=== PATIENT | male | born 1985 | race American Indian/Alaskan Native ===

== ENCOUNTER 2016-09-10 14:50 | Emergency (ER) | payer SELFPAY ==
[2016-09-10 15:35] VITALS: BP 118/66
[2016-09-10] MEDS ORDERED: MOTRIN PO ONE (15:48)
--- NOTE | 2016-09-10 15:52 | Emergency Department Report ---
Minor Respiratory - HPI Chief Complaint: Upper Respiratory Infection Stated Complaint: FLU SYMPTOMS Time Seen by Provider: 09/10/16 15:42 Duration: 2 Days Pain Location: Throat Severity: mild Minor Respiratory: Yes Rhinorrhea, Yes Sore Throat, Yes Able to Tolerate Fluids , Yes Cough, Yes Sick Contacts, Yes Fever, No Ear Pain, No Hemoptysis, No Chest Pain, No Shortness of Breath Other History: Pt reports minor cough, congestion, sore throat with fever, nausea, mylagias x 2 days. ED Review of Systems ROS: Stated complaint: FLU SYMPTOMS Other details as noted in HPI Comment: All other systems reviewed and negative Constitutional: chills, fever Eyes: denies: eye pain, eye discharge, vision change ENT: throat pain, congestion. denies: ear pain Respiratory: cough. denies: shortness of breath, wheezing Cardiovascular: denies: chest pain, palpitations Endocrine: no symptoms reported Gastrointestinal: nausea. denies: abdominal pain, vomiting, diarrhea Genitourinary: denies: urgency, dysuria Musculoskeletal: denies: back pain, joint swelling, arthralgia Skin: denies: rash, lesions Neurological: headache. denies: weakness, paresthesias Psychiatric: denies: anxiety, depression Hematological/Lymphatic: denies: easy bleeding, easy bruising ED Past Medical Hx - Past Medical History Previous Medical History?: No - Surgical History Past Surgical History?: No - Social History Smoking Status: Current Every Day Smoker Substance Use Type: Alcohol, Non Opiate Pain - Medications Home Medications: Home Medications Medication Instructions Recorded Confirmed Last Taken Type Ibuprofen [Motrin 800 MG tab] 800 mg PO TID #15 tablet 09/10/16 Unknown Rx Ondansetron [Zofran TAB] 4 mg PO Q8HR PRN #10 tablet 09/10/16 Unknown Rx Oseltamivir [Tamiflu] 75 mg PO BID #10 cap 09/10/16 Unknown Rx Minor Respiratory Exam - Exam General: Vital signs noted. No distress. Alert and acting appropriately. HEENT: Yes Pharyngeal Erythema, Yes Moist Mucous Membranes, No Pharyngeal Exudates, No Rhinorrhea, No Conjuctival Injection, No Frontal Tenderness, No Maxillary Tenderness Ear: Neither TM Bulge, Neither TM Erythema, Neither EAC Pain, Neither EAC Discharge Neck: Yes Supple, No Adenopathy Lungs: Yes Good Air Exchange, No Wheezes, No Ronchi, No Stridor, No Cough, No Labored Respirations, No Retractions, No Use of Accessory Muscles, No Other Abnormal Lung Sounds Heart: Yes Regular, No Murmur Abdomen: Yes Normal Bowel Sounds, No Tenderness, No Peritoneal Signs Skin: No Rash, No Edema Neurologic: Alert and oriented, no deficits. No signs of meningitis Musculoskeletal: Unremarkable. ED Course Vital Signs 09/10/16 15:32 Temperature 100.5 F H Pulse Rate 80 Respiratory 18 Rate Blood Pressure 118/66 O2 Sat by Pulse 98 Oximetry - Reevaluation(s) Reevaluation #1: 09/10/16 15:50 NAD, stable for d/c. ED Medical Decision Making - Medical Decision Making Pt with sx of influenza. Will treat and have him follow up. - Differential Diagnosis flu, pna Critical care attestation.: If time is entered above; I have spent that time in minutes in the direct care of this critically ill patient, excluding procedure time. ED Disposition Clinical Impression: Influenza Disposition: DISCHARGED TO HOME OR SELFCARE Is pt being admited?: No Condition: Good Instructions: Influenza (ED) Prescriptions: Ibuprofen [Motrin 800 MG tab] 800 mg PO TID #15 tablet Ondansetron [Zofran TAB] 4 mg PO Q8HR PRN #10 tablet PRN Reason: Nausea And Vomiting Oseltamivir [Tamiflu] 75 mg PO BID #10 cap Referrals: JEFF FAIRBANKS MD [Staff Physician] - 3-5 Days Forms: Work/School Release Form(ED) Time of Disposition: 15:51
== END 2016-09-10 16:00 | disposition home or self-care (01) ==
LOC: ED 14:50
DX: J11.1 Influenza due to unidentified influenza virus with other respiratory manifestations (principal); F17.200 Nicotine dependence, unspecified, uncomplicated
CPT/HCPCS: 99282

== ENCOUNTER 2019-01-02 11:40 | Emergency (ER) | payer SELFPAY ==
--- NOTE | 2019-01-02 11:57 | Emergency Department Report ---
Blank Doc - Documentation Documentation: This is a 33-year-old male that presents with decreased hearing and filling fu llness to right ear. Exam: Earwax buildup. Unable to visualize TMs. This initial assessment/diagnostic orders/clinical plan/treatment(s) is/are subject to change based on patient's health status, clinical progression and re- assessment by fellow clinical providers in the ED. Further treatment and workup at subsequent clinical providers discretion. Patient/guardians urged not to elope from the ED as their condition may be serious if not clinically assessed and managed. Initial orders include: 1- Patient sent to [facility] for further evaluation and treatment
[2019-01-02 11:58] VITALS: BP 131/46
--- NOTE | 2019-01-02 14:00 | Emergency Department Report ---
Chief Complaint: Earache Stated Complaint: R EAR INJURY Time Seen by Provider: 01/02/19 11:53 - HPI History of Present Illness: 33-year-old -Greek male presents to the emergency room complaint of right ear being clogged. Patient denies any trauma to the ear no fever no chills no nausea no vomiting. Patient does report he was recently went swimming. This started one day ago. Patient denies any ear pain. - ROS Review of Systems: No fever no chills, no nausea no vomiting, no ear drainage, no ear pain, no dizziness or imbalance. - Exam Vital Signs: Vital Signs 01/02/19 11:56 Temperature 98 F Pulse Rate 64 Respiratory 15 Rate Blood Pressure 131/46 O2 Sat by Pulse 98 Oximetry Physical Exam: Right ear room and impaction MSE screening note: Focused history and physical exam performed. Due to findings the following was ordered: Discussed the patient that he can get [id number] Debrox and irrigation kit. Patient discussed with doctor:: PAULA BEAUCHAMP ([place] is C home) ED Medical Decision Making - Medical Decision Making 33-year-old male comes in for right ear cerumen impaction 1 day. Discussed the patient that this visit will be more feasible for patient if he tries [id number] earwax irrigation. Patient will be sent home information for Debrox ED Disposition for MSE Clinical Impression: Impacted cerumen, right ear Disposition: Z-07 MED SCREENING EXAM-LEFT Is pt being admited?: No Does the pt Need Aspirin: No Condition: Stable Additional Instructions: Debrox. Referrals: JEAN MARIE JOYA MD [Primary Care Provider] - 3-5 Days
== END 2019-01-02 14:09 | disposition left against medical advice (07) ==
LOC: ED 11:40
DX: H61.21 Impacted cerumen, right ear (principal)
CPT/HCPCS: 99282

== ENCOUNTER 2019-01-02 18:06 | Emergency (ER) | payer SELFPAY ==
[2019-01-02 18:19] VITALS: BP 133/60
--- NOTE | 2019-01-02 18:56 | Emergency Department Report ---
Blank Doc - Documentation Documentation: This is a 33-year-old male that presents with right earwax buildup. Was here earlier for same complaint but OTC did not help patient. This initial assessment/diagnostic orders/clinical plan/treatment(s) is/are subject to change based on patient's health status, clinical progression and re- assessment by fellow clinical providers in the ED. Further treatment and workup at subsequent clinical providers discretion. Patient/guardians urged not to elope from the ED as their condition may be serious if not clinically assessed and managed. Initial orders include: 1- Patient sent to [facility] for further evaluation and treatment
--- NOTE | 2019-01-02 20:22 | Emergency Department Report ---
ED ENT HPI - General Chief complaint: Earache Stated complaint: R EAR CLOGGED Time Seen by Provider: 01/02/19 18:56 Source: patient Mode of arrival: Ambulatory Limitations: No Limitations - History of Present Illness Initial comments: This is a 33-year-old -[place] male who presents to the emergency room with muffled hearing to right ear. Patient states he was seen in this emergency room this morning and diagnosed with cerumen impaction. He was started on deborax which he is using for one hour straight with no improvement of symptoms. Patient reports here and is to same as it was this morning. Patient states he went swimming this past weekend. He denies fever, nausea, vomiting, or recent trauma. MD complaint: ear pain Onset/Timin -: days(s) Location: R ear Severity: mild Severity scale (0 -10): 0 Quality: aching Consistency: intermittent Improves with: none Worsens with: none Context- Ear: recent swimming Associated Symptoms: denies: fever, cough, gum swelling, toothache, pain with swallowing, sore throat, tinnitus, hearing loss, discharge from ear, rhinorrhea - Related Data Previous Rx's Medication Instructions Recorded Last Taken Type Ibuprofen [Motrin 800 MG tab] 800 mg PO TID #15 tablet 09/10/16 Unknown Rx Ondansetron [Zofran TAB] 4 mg PO Q8HR PRN #10 tablet 09/10/16 Unknown Rx Oseltamivir [Tamiflu] 75 mg PO BID #10 cap 09/10/16 Unknown Rx Neomy/Polymyx B/Hc Otic Susp 4 drops AD TID #1 bottle 01/02/19 Unknown Rx [Cortisporin (Otic) Susp] Allergies Allergy/AdvReac Type Severity Reaction Status Date / Time No Known Allergies Allergy Unverified 09/10/16 15:30 ED Dental HPI - General Chief complaint: Earache Stated complaint: R EAR CLOGGED Time Seen by Provider: 01/02/19 18:56 Source: patient Mode of arrival: Ambulatory Limitations: No Limitations - Related Data Previous Rx's Medication Instructions Recorded Last Taken Type Ibuprofen [Motrin 800 MG tab] 800 mg PO TID #15 tablet 09/10/16 Unknown Rx Ondansetron [Zofran TAB] 4 mg PO Q8HR PRN #10 tablet 09/10/16 Unknown Rx Oseltamivir [Tamiflu] 75 mg PO BID #10 cap 09/10/16 Unknown Rx Neomy/Polymyx B/Hc Otic Susp 4 drops AD TID #1 bottle 01/02/19 Unknown Rx [Cortisporin (Otic) Susp] Allergies Allergy/AdvReac Type Severity Reaction Status Date / Time No Known Allergies Allergy Unverified 09/10/16 15:30 ED Review of Systems ROS: Stated complaint: R EAR CLOGGED Other details as noted in HPI Constitutional: denies: chills, fever ENT: hearing loss. denies: ear pain, throat pain Respiratory: denies: cough, shortness of breath, wheezing Cardiovascular: denies: chest pain, palpitations Gastrointestinal: denies: abdominal pain, nausea, diarrhea Skin: denies: rash, lesions Neurological: denies: headache, weakness, paresthesias Psychiatric: denies: anxiety, depression ED Past Medical Hx - Past Medical History Previous Medical History?: No - Surgical History Past Surgical History?: No - Social History Smoking Status: Never Smoker Substance Use Type: None - Medications Home Medications: Home Medications Medication Instructions Recorded Confirmed Last Taken Type Ibuprofen [Motrin 800 MG tab] 800 mg PO TID #15 tablet 09/10/16 Unknown Rx Ondansetron [Zofran TAB] 4 mg PO Q8HR PRN #10 tablet 09/10/16 Unknown Rx Oseltamivir [Tamiflu] 75 mg PO BID #10 cap 09/10/16 Unknown Rx Neomy/Polymyx B/Hc Otic Susp 4 drops AD TID #1 bottle 01/02/19 Unknown Rx [Cortisporin (Otic) Susp] ED Physical Exam - General Limitations: No Limitations General appearance: alert, in no apparent distress - ENT ENT exam: Present: mucous membranes moist, normal external ear exam (cerumen impaction on the right, TM not visualized) - Neck Neck exam: Present: normal inspection - Respiratory Respiratory exam: Present: normal lung sounds bilaterally. Absent: respiratory distress - Cardiovascular Cardiovascular Exam: Present: regular rate, normal rhythm. Absent: systolic murmur, diastolic murmur, rubs, gallop - Neurological Exam Neurological exam: Present: alert, oriented X3 - Psychiatric Psychiatric exam: Present: normal affect, normal mood - Skin Skin exam: Present: warm, dry, intact, normal color. Absent: rash ED Course Vital Signs 01/02/19 18:18 Temperature 98.4 F Pulse Rate 65 Respiratory 17 Rate Blood Pressure 133/60 O2 Sat by Pulse 99 Oximetry ED Medical Decision Making - Medical Decision Making Patient is stable and was examined by me. Vitals normal. On the focal exam was cerumen impaction on the right. Patient instructed to continue using Debrox ear wax removal drops and start neomycin eye drops. Discussed plan with patient agreed with plan. Discharged home in stable condition. Follow up with PCP in 24- 72 hours. Critical care attestation.: If time is entered above; I have spent that time in minutes in the direct care of this critically ill patient, excluding procedure time. ED Disposition Clinical Impression: Impacted cerumen, right ear Disposition: TO HOME OR SELFCARE Is pt being admited?: No Does the pt Need Aspirin: No Condition: Stable Instructions: Cerumen Impaction (ED) Additional Instructions: Follow-up with her primary care doctor from the referral list below. Return to the emergency room if worsening symptoms. Prescriptions: Neomy/Polymyx B/Hc Otic Susp [Cortisporin (Otic) Susp] 4 drops AD TID #1 bottle Referrals: JEAN MARIE JOYA MD [Primary Care Provider] - 3-[address] [facility] [Outside] - 3-5 Days [facility] [Outside] - 3-5 Days Time of Disposition: 20:29
== END 2019-01-02 20:35 | disposition home or self-care (01) ==
LOC: ED 18:06
DX: H61.21 Impacted cerumen, right ear (principal); Z79.1 Long term (current) use of non-steroidal anti-inflammatories (NSAID); Z79.899 Other long term (current) drug therapy

== ENCOUNTER 2019-09-20 17:18 | Emergency (ER) | payer BC ==
[2019-09-20 20:22] VITALS: BP 130/61
--- NOTE | 2019-09-20 21:37 | Emergency Department Report ---
ED General Adult HPI - General Chief complaint: Neck Pain/Injury Stated complaint: RT SHOULDER BURNING SENSATION Source: patient Mode of arrival: Ambulatory Limitations: No Limitations - History of Present Illness Initial comments: Patient is a 34-year-old -Togolese male with no past medical history who presents to the ED with complaint of acute onset persistent burning sensation on anterior right cervical lymph nodes and pain for the last 3 days. Patient states that he recently shaved his hicks and that the symptoms started afterwards. Patient denies cough, nasal and sinus congestion, dizziness, chest pain, shortness of breath, change in vision, headache, sore throat, nausea, vomiting, change in vision, syncope, traumatic injury or heavy lifting. MD Complaint: right anterior cervical lymphadenopathy and burning sensation -: Sudden, days(s) (2) Location: neck Radiation: non-radiation Severity scale (0 -10): 4 Quality: burning, aching Consistency: intermittent Improves with: none Worsens with: none Associated Symptoms: malaise. denies: denies other symptoms, confusion, chest pain, cough, diaphoresis, fever/chills, headaches, nausea/vomiting, rash, seizure, shortness of breath, syncope, weakness, other Treatments Prior to Arrival: none - Related Data Previous Rx's Medication Instructions Recorded Last Taken Type Ibuprofen [Motrin 800 MG tab] 800 mg PO TID #15 tablet 09/10/16 Unknown Rx Ondansetron [Zofran TAB] 4 mg PO Q8HR PRN #10 tablet 09/10/16 Unknown Rx Oseltamivir [Tamiflu] 75 mg PO BID #10 cap 09/10/16 Unknown Rx Neomy/Polymyx B/Hc Otic Susp 4 drops AD TID #1 bottle 01/02/19 Unknown Rx [Cortisporin (Otic) Susp] Ibuprofen [Motrin] 600 mg PO Q8H PRN #15 tablet 09/20/19 Unknown Rx Sulfamethoxazole/Trimethoprim 1 each PO Q12H #20 tablet 09/20/19 Unknown Rx [Bactrim DS TAB] predniSONE [Deltasone] 40 mg PO QDAY #10 tab 09/20/19 Unknown Rx Allergies Allergy/AdvReac Type Severity Reaction Status Date / Time No Known Allergies Allergy Unverified 09/10/16 15:30 ED Review of Systems ROS: Stated complaint: RT SHOULDER BURNING SENSATION Other details as noted in HPI Constitutional: denies: chills, fever Eyes: denies: eye pain, eye discharge, vision change ENT: denies: ear pain, throat pain Respiratory: denies: cough, shortness of breath, wheezing Cardiovascular: denies: chest pain, palpitations Endocrine: no symptoms reported Gastrointestinal: denies: abdominal pain, nausea, diarrhea Genitourinary: denies: urgency, dysuria Musculoskeletal: denies: back pain, joint swelling, arthralgia Skin: other (mildly erythematous rashes on the beared and neck). denies: rash, lesions Neurological: denies: headache, weakness, paresthesias Psychiatric: denies: anxiety, depression Hematological/Lymphatic: denies: easy bleeding, easy bruising ED Past Medical Hx - Past Medical History Previous Medical History?: No - Surgical History Past Surgical History?: No - Social History Smoking Status: Never Smoker Substance Use Type: Alcohol - Medications Home Medications: Home Medications Medication Instructions Recorded Confirmed Last Taken Type Ibuprofen [Motrin 800 MG tab] 800 mg PO TID #15 tablet 09/10/16 Unknown Rx Ondansetron [Zofran TAB] 4 mg PO Q8HR PRN #10 tablet 09/10/16 Unknown Rx Oseltamivir [Tamiflu] 75 mg PO BID #10 cap 09/10/16 Unknown Rx Neomy/Polymyx B/Hc Otic Susp 4 drops AD TID #1 bottle 01/02/19 Unknown Rx [Cortisporin (Otic) Susp] Ibuprofen [Motrin] 600 mg PO Q8H PRN #15 tablet 09/20/19 Unknown Rx Sulfamethoxazole/Trimethoprim 1 each PO Q12H #20 tablet 09/20/19 Unknown Rx [Bactrim DS TAB] predniSONE [Deltasone] 40 mg PO QDAY #10 tab 09/20/19 Unknown Rx ED Physical Exam - General Limitations: No Limitations General appearance: alert, in no apparent distress - Head Head exam: Present: atraumatic, normocephalic, normal inspection - Eye Eye exam: Present: normal appearance, PERRL, EOMI Pupils: Present: normal accommodation - ENT ENT exam: Present: normal exam, normal orophraynx, mucous membranes moist, TM's normal bilaterally, normal external ear exam - Neck Neck exam: Present: normal inspection, full ROM, lymphadenopathy - Respiratory Respiratory exam: Present: normal lung sounds bilaterally. Absent: respiratory distress, wheezes, rales, rhonchi, chest wall tenderness, accessory muscle use, decreased breath sounds - Cardiovascular Cardiovascular Exam: Present: regular rate, normal rhythm, normal heart sounds. Absent: systolic murmur, diastolic murmur, rubs, gallop - GI/Abdominal GI/Abdominal exam: Present: soft, normal bowel sounds. Absent: tenderness, guarding, hyperactive bowel sounds, hypoactive bowel sounds, organomegaly - Extremities Exam Extremities exam: Present: normal inspection, full ROM, normal capillary refill - Back Exam Back exam: Present: normal inspection, full ROM. Absent: tenderness, CVA tenderness (R), CVA tenderness (L), muscle spasm, paraspinal tenderness - Neurological Exam Neurological exam: Present: alert, oriented X3, CN II-XII intact, normal gait, reflexes normal - Psychiatric Psychiatric exam: Present: normal affect, normal mood - Skin Skin exam: Present: warm, dry, intact, normal color, rash (Mildly erythematous rash on the anterior right cervical area with prominent right cervical lymph nodes), erythema ED Course Vital Signs 09/20/19 20:20 Temperature 98.1 F Pulse Rate 60 Respiratory 18 Rate Blood Pressure 130/61 O2 Sat by Pulse 98 Oximetry ED Medical Decision Making - Medical Decision Making This is a 34-year-old male who presented to the ED with anterior right cervical lymphadenopathy with a burning sensation after shaving his hicks. In the ED, patient is alert and oriented x3 and is not in distress. The vital signs are st able. Patient was discharged home on medications and advised follow-up with his primary care physician in 7 to 10 days for reevaluation return to the ED immediately if symptoms get worse. - Differential Diagnosis cervical lymphadenopathy; acute folliculitis Critical care attestation.: If time is entered above; I have spent that time in minutes in the direct care of this critically ill patient, excluding procedure time. ED Disposition Clinical Impression: Acute folliculitis, Reactive cervical lymphadenopathy Disposition: - TO HOME OR SELFCARE Is pt being admited?: No Does the pt Need Aspirin: No Condition: Stable Instructions: Lymphadenopathy (ED), Folliculitis (ED) Additional Instructions: Take medications with food, drink plenty of fluids and follow-up with your primary care physician in 7 to 10 days for reevaluation. Return to the ED immediately if symptoms get worse. Prescriptions: Sulfamethoxazole/Trimethoprim [Bactrim DS TAB] 1 each PO Q12H #20 tablet predniSONE [Deltasone] 40 mg PO QDAY #10 tab Ibuprofen [Motrin] 600 mg PO Q8H PRN #15 tablet PRN Reason: Pain Referrals: [facility] [Outside] - 3-5 Days Time of Disposition: 21:49 Print Language: KOREAN
== END 2019-09-20 22:00 | disposition home or self-care (01) ==
LOC: ED 17:18
DX: L73.9 Follicular disorder, unspecified (principal); R59.0 Localized enlarged lymph nodes; Z79.1 Long term (current) use of non-steroidal anti-inflammatories (NSAID); Z79.899 Other long term (current) drug therapy
CPT/HCPCS: 99282